=== PATIENT | female | born 1995 | race Caucasian/White ===

== ENCOUNTER 2019-04-12 04:58 | Emergency (ER) | payer OTHER ==
[2019-04-12] MEDS ORDERED: Ibuprofen 800 MG TAB ONE (05:24)
--- NOTE | 2019-04-12 09:38 | RAD ---
RIGHT SHOULDER 3 VIEWS: HISTORY: Pain. Injury. FINDINGS: The glenohumeral joint space is preserved. No fracture or dislocation. Visualized right ribs are un remarkable. IMPRESSION: No fracture or dislocation. POS: [facility]
== END 2019-04-12 05:43 | disposition home or self-care (01) ==
LOC: NAV ERS 04:58
DX: S43.401A Unspecified sprain of right shoulder joint, initial encounter (principal); J45.909 Unspecified asthma, uncomplicated; Y04.8XXA Assault by other bodily force, initial encounter; Y99.0 Civilian activity done for income or pay